=== PATIENT | female | born 2000 | race Caucasian/White ===

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

== ENCOUNTER 2022-07-16 07:30 | Outpatient (RCR) | payer OTHER, SELFPAY ==
--- NOTE | 2022-06-26 11:25 | HP.OTEVAL ---
Patient's Visit Information DASH ACUÑA is a 22 year old F, referred to Occupational Therapy by ANANYA COOLEY, with a diagnosis of bilateral wrist pain Ligamantous laxitvity. Date of Evaluation: 06/25/22 Occupational Therapist: Cristina Jay, OTR/L, CHT - Subjective This 22 year old female was seen for OT eval with dx of bilateral wrist pain - ligamentous laxity- pt states in 2019 she would have pain with playing lacrosse and does not know what initial trigger was-. pt states this winter she could not do much with her wrist/hands duet to pain - left wrist initiated in 2018 was worse than right until January of this year when her right became just as pain. 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 pt would like to return to a PLOF and use her hands/wrist without pain. - ADLs Miscellaneous: Use cell phone, Write, Turn pages in book, Use computer keyboard - Pain bilateral wrist/hands 4 Pain Intensity Range: 3, 5 - ROM Forearm: right/left WNL Wrist: right 70/75 left 75/75 ROM Comments: right RD [address] 15 UD 25 - Strength Wrist: right 4/5 left 4-/5 peak force wrist ext 8# left 6# right flex 5# left 2# Emanations Analysis Technician: right 45# left 40# Lateral Pinch: right 8# left 10# Tripod Pinch: right 2# left 6# - Sensation Sensation Comments: reports tingling in bilateral hands. left will get tingling throughout ulnar nerve distribution. right median nerve denies tingling now - Special Tests WHAT Test: bilateral negative Chandler Scaphoid Shift: bilateral negative - Quick DASH-Disab of Arm,Shoulder& Hand Quick DASH Score: 51.6650 - Goals Goal:: pt will demo a increase in bilateral extended day teacher strength by 10# with report of no pain with resistive testing by d.c Goal:: pt will report pain no greater than 2/10 with daily tasks by d.c Goal:: pt will demo understanding of using tape to limit her ROM to decrease stress on lig. structures by end of 2nd visit. Pt will demo understanding of work/lifting and carry ergonomics to decrease stress on tendons to increase pts independent with ADLs, IADLS and work tasks by d/c. - Rehabilitation General Assessment: pt demo with painful palpation on bilateral wrist at lunate- left Some pain with TFCC testing - Due to onset unknown and length of pts pain pt pt would benefit from skilled OT services 1-2x week for 4 weeks to decrease pain and return pt to PLOF. pt agrees with POC. Rehabilitation Potential: Good - Anticipated Interventions A/AAROM/PROM, Strengthening, Modalities, Orthoses, Joint Protection/Energy Conservation, Ergonomic Education, Education re assistive Equipment, Education re Diagnosis, Home Program, Other Other Interventions: wrist stabilization ex/and tape - Visit Plan Frequency: 2x /Week Duration: 4 Weeks TEXT: Thank you for the opportunity to evaluate your patient. For Medicare and Medicare HMO plans, please review the plan of care and approve it. It will need to be FAXED BACK to us at [phone] for Medicare purposes. Please let me know if there are questions or concerns regarding this plan of care. Physician Signature: Date:
--- NOTE | 2022-10-06 14:24 | HP.OTDCSUM_ITS ---
It has been my pleasure to treat DASH ACUÑA under orders from ANANYA COOLEY, for the diagnosis of bilateral wrist pain Ligamantous laxitvity for a total of 6 visit(s). Please see the following information for a summary of their discharge status. Objective/Function: pt tolerating tasks well-. some discomfort in wrist more with left than right. pt continues to have pain with motion therapist is working in limited plane of motion to strengthen and having pt perform wrist stabilization ex. pt to use supportive brace/tape with playing lacrosse. pt has not scheduled further apts since 07/16/22 and is d/c due to time lapse in services. Patient Goals: Decrease Pain, Use Hand/Wrist/Arm Normally Again Goal:: pt will demo a increase in bilateral director of personnel strength by 10# with report of no pain with resistive testing by d.c Goal:: pt will report pain no greater than 2/10 with daily tasks by d.c Goal:: pt will demo understanding of using tape to limit her ROM to decrease stress on lig. structures by end of 2nd visit. Pt will demo understanding of work/lifting and carry ergonomics to decrease stress on tendons to increase pts independent with ADLs, IADLS and work tasks by d/c. Plan: cont with wrist stabilization ex. If there are questions or concerns regarding this patient's occupational therapy, please fell free to call me at [phone]. Thank you for the referral of this patient. Sincerely, Cristina Jay, OTR/L, CHT
--- NOTE | 2022-10-06 14:24 | OTREVAL_ITS ---
ANANYA COOLEY, It has been my pleasure to treat DASH ACUÑA over the last 6 visits for bilateral wrist pain Ligamantous laxitvity. Please see the progress note below for an update on the occupational therapy plan of care! Subjective: pt states right LF and RF asleep this am- dissipated after a min. right is more bothersome today than left Objective/Function: pt tolerating tasks well-. some discomfort in wrist more with left than right Plan Frequency: 2x /Week Duration: 4 Weeks Visits in this POC: 8 Plan: cont with wrist stabilization ex. 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 structures by end of 2nd visit. Pt will demo understanding of work/lifting and carry ergonomics to decrease stress on tendons to increase pts independent with ADLs, IADLS and work tasks by d/c. Anticipated Interventions Anticipated Interventions: A/AAROM/PROM, Strengthening, Modalities, Orthoses, Joint Protection/Energy Conservation, Ergonomic Education, Education re assistive Equipment, Education re Diagnosis, Home Program, Other Other Interventions: wrist stabilization ex/and tape Please do not hesitate to contact me at [phone] by phone or if you have questions or concerns regarding this new plan of care! Sincerely, Cristina Jay, OTR/L, CHT
== END 2022-07-16 19:00 | disposition home or self-care (01) ==
LOC: OT 07:30
DX: M24.231 Disorder of ligament, right wrist; M24.232 Disorder of ligament, left wrist
CPT/HCPCS: 97110; 97167; 97530

== ENCOUNTER → 2022-07-20 | Outpatient (CLI) | payer OTHER, SELFPAY ==
[2022-07-20 16:23] LABS: Anion Gap 7 (5-15); BUN 10 mg/dL (7-18); BUN/Creat Ratio 12.2 RATIO (10-20); Calcium,Total 9.3 mg/dL (8.5-10.1); Chloride 105 mmol/L (98-107); Creatinine, Serum 0.82 mg/dL (0.55-1.02); EST Glomerular Filtration Rate 94 mL/min (>60); Est Glom Filt Rate - Afr Amer 114 mL/min (>60); Glucose 73 mg/dL (74-106); Potassium 3.8 mmol/L (3.5-5.1); Sodium Level 139 mmol/L (136-145); Thyroid Stim Hormone (TSH) 2.46 uIU/mL (0.358-3.74)
== END | disposition home or self-care (01) ==
LOC: LAB 14:20
PROVIDERS: Referring Provider Internal Medicine Cardiovascular Disease; Visit Provider Internal Medicine Cardiovascular Disease
DX: R00.2 Palpitations (principal)
CPT/HCPCS: 36415; 80048; 83735; 84443

== ENCOUNTER → 2022-07-28 | Outpatient (CLI) | payer OTHER, SELFPAY ==
--- NOTE | 2022-07-28 07:59 | ECHOD_ITS ---
Reason For Study: ARRYTHMIA Procedure This was a 2D Doppler, Color Flow transthoracic echocardiogram. Exam performed in department. Left Ventricle The left ventricle is normal in size, thickness, and systolic function. The left ventricular ejection fraction is 65 %. Right Ventricle Normal right ventricle. Atria The left and right atria are normal. Mitral Valve The mitral valve is structurally normal. No prolapse or stenosis seen. Tricuspid Valve Normal tricuspid valve. Aortic Valve Normal aortic valve. Pulmonic Valve The pulmonic valve is not well visualized. Great Vessels Normal sized aortic root. Pericardium/Pleural No pericardial effusion. MMode/2D Measurements & Calculations LVIDd: 4.8 cm IVSd: 0.66 cm LAV(MOD-bp): 62.1 ml LVIDs: 3.4 cm LVPWd: 0.73 cm LAV(MOD-bp) Indexed: 36.0 ml/m2 RVDd: 3.7 cm FS: 28.5 % LAV(MOD-sp2): 62.8 ml LAV(MOD-sp4): 61.2 ml SV(MOD-sp4): 58.7 ml SV(sp4-el): 58.1 ml LVAd ap4: 30.6 cm2 LVLd ap4: 7.9 cm EDV(MOD-sp4): 99.3 ml EDV(sp4-el): 100.3 ml LVAs ap4: 17.4 cm2 LVLs ap4: 6.1 cm ESV(MOD-sp4): 40.5 ml ESV(sp4-el): 42.1 ml EF(MOD-sp4): 59.2 % EF(sp4-el): 58.0 % LA A4 area: 20.2 cm2 LA dimension(2D): 3.5 cm RA A4 area: 12.0 cm2 Time Measurements MV dec time: 0.14 sec Doppler Measurements & Calculations MV E max marco: 89.8 cm/sec Lat Peak E' Marco: 19.7 cm/sec Med Peak E' Marco: 14.1 cm/sec MV A max marco: 61.9 cm/sec E/E' lat: 4.6 E/E' med: 6.4 MV E/A: 1.5 MV V2 max: 98.2 cm/sec MV dec slope: 676.6 cm/sec2 Ao V2 max: 134.5 cm/sec MV max P.9 mmHg Ao max P.2 mmHg MV V2 mean: 68.7 cm/sec Ao V2 mean: 93.1 cm/sec MV mean P.1 mmHg Ao mean P.0 mmHg MV V2 VTI: 20.7 cm Ao V2 VTI: 26.0 cm LV V1 max: 123.3 cm/sec PA V2 max: 118.0 cm/sec LV V1 max P.1 mmHg PA V2 mean: 84.3 cm/sec LV V1 mean P.7 mmHg LV V1 mean: 91.0 cm/sec LV V1 VTI: 23.1 cm ECHO/Echo Complete Interpretation Summary The left ventricular ejection fraction is 65 %. Ordering Physician: Ave Miguel Referring Physician: Ave Miguel Performed By: Jillian Styles RCS
== END | disposition home or self-care (01) ==
LOC: CVS 07:58
PROVIDERS: Referring Provider Internal Medicine Cardiovascular Disease; Visit Provider Internal Medicine Cardiovascular Disease
DX: R00.2 Palpitations (principal)
CPT/HCPCS: 93225; 93226; 93306

== ENCOUNTER 2022-09-11 09:27 | Outpatient (CLI) | payer OTHER, SELFPAY ==
[2022-09-11 09:43] LABS: Hematocrit 39.9 % (37-47); Hemoglobin 12.8 g/dL (12.0-15.0); Mean Corp Hgb Conc 32.1 g/dL (32-36); Mean Corpuscular Hgb 26.7 pg (27.0-32.0); Mean Corpuscular Volume 83.3 fL (81-99); Mean Platelet Vol. 8.6 fl (6.2-12.0); POSITIVE MORPHOLOGY YES; Platelet Count 329 K/mm3 (150-450); RBC Distribution Width CV 21.5 % (11.6-14.6); RBC Distribution Width SD 63.1 fl (35.1-43.9); Red Blood Count 4.79 M/mm3 (4.2-5.4); White Blood Count 5.2 K/mm3 (4.4-11.0)
[2022-09-11 09:55] LABS: Internal QC Validated? YES +Cl - CLEAR BKGD; Pregnancy, Serum, hCG Quali. NEGATIVE Negative
[2022-09-11 09:56] LABS: Anion Gap 7 (5-15); BUN 8 mg/dL (7-18); BUN/Creat Ratio 9.8 RATIO (10-20); Calcium,Total 9.5 mg/dL (8.5-10.1); Chloride 106 mmol/L (98-107); Creatinine, Serum 0.82 mg/dL (0.55-1.02); EST Glomerular Filtration Rate 94 mL/min (>60); Est Glom Filt Rate - Afr Amer 114 mL/min (>60); Glucose 91 mg/dL (74-106); Potassium 3.8 mmol/L (3.5-5.1); Sodium Level 140 mmol/L (136-145)
--- NOTE | 2022-09-11 15:08 | PCM.TILTTABL ---
Staff Staff: Betty Casey and Jailene Molina Summary Protocol: 70 Degree Upright Tilt Pre Test Resting HR: 88 Pre Test Resting BP: 137/70 Minimum Test HR: 93 Maximum Test HR: 121 Minimum Test BP: 126/0 Maximum Test BP: 134/0 Reason for Test Termination: Reached Maximum Test Time Physician Tilt Table Report Patient's Physicians Primary Care Physician: Elle Villalta Fashion Coordinator: Ave Miguel Indications/Diagnosis: Dizziness/lightheadedness Procedure Comments: The patient was brought to the tilt table laboratory and laid supine on the tilt table. The patient was awake and alert and warm and dry. The resting heart rate was 88 bpm with a resting blood pressure 137/70 mmHg. The cardiac rhythm was normal sinus rhythm. The patient was placed in the 70 degree upright tilt table position for approximately 30 minutes. The patient remained alert and oriented and warm and dry. The minimal heart rate was 93 bpm at initiation of the upright tilt with a minimal blood pressure of 126/70 at the termination of the upright tilt with a maximal heart rate of 121 bpm during the upright tilt and a maximal blood pressure 134/80 mmHg during the upright tilt. The cardiac rhythm remained sinus rhythm. The patient was reported as appearing flushed at times. The patient reported having hot flash , vision fuzzy , headache, arms cooler , back of neck clammy , headache and head pressure, heart faster , shortness of breath, but no loss of consciousness. The patient was returned to the supine position. She remained alert and oriented and warm and dry. Her concluding heart rate was 81 bpm with a concluding blood pressure 128/71 mmHg. Her cardiac rhythm remained sinus rhythm. She was taking oral intake well. She was subsequently released from the tilt table laboratory. Summary: 70 degree upright tilt table study noted for vasovagal type symptoms but considered negative for reproducible vasovagal/neurocardiogenic mediated syncope. Also, based upon the lack of an abrupt increase in heart rate as well as a lack of demonstrable orthostatic hypotension within the first 3 minutes of the head up tilt study there does not appear to be criteria compatible with POTS. This note was generated using a voice recognition system and there may be incorrect words, spelling or punctuation that were not noted when reviewing the office note prior to saving.
[2022-09-11 15:14] VITALS: BP 126/0; BP 134/0; BP 137/70
== END 2022-09-11 23:59 | disposition home or self-care (01) ==
LOC: CVS 09:29
PROVIDERS: PCP Physician Assistant; Referring Provider Internal Medicine Cardiovascular Disease; Visit Provider Internal Medicine Cardiovascular Disease
DX: R42 Dizziness and giddiness (principal); I47.9 Paroxysmal tachycardia, unspecified; R55 Syncope and collapse
CPT/HCPCS: 36415; 80048; 84703; 85027; 93660; J7040; A4216

== ENCOUNTER 2022-09-12 13:41 | Emergency (ER) | payer OTHER, SELFPAY ==
[2022-09-12 13:42] VITALS: BP 143/89; PULSE 99; RESP 18; TEMP 36.3; O2SAT 100; BMI 24.7
--- NOTE | 2022-09-12 13:49 | EKG12_ITS ---
Test Reason : PALPS Blood Pressure : / mmHG Vent. Rate : 096 BPM Atrial Rate : 096 BPM P-R Int : 124 ms QRS Dur : 088 ms QT Int : 366 ms P-R-T Axes : 058 085 030 degrees QTc Int : 462 ms Sinus rhythm with sinus arrhythmia with occasional Premature ventricular complexes Otherwise normal ECG Confirmed by CORBIN SMITH, GRZEGORZ ([id number]), assistant production editor GAVI CHUNG ([id number]) on 09/15/2022 8:05:39 AM Referred By: LANCE Confirmed By:GRZEGORZ ALANIZ MD
[2022-09-12 13:56] VITALS: BP 140/92; PULSE 99; RESP 12; O2SAT 100
[2022-09-12 14:03] VITALS: BP 127/79; BP 135/82; BP 141/80; PULSE 104; PULSE 115; PULSE 120
--- NOTE | 2022-09-12 14:07 | ED.VIS.CHEST ---
HPI <PONCHO Grijalva - Last Filed: 09/12/22 21:54> History of Present Illness Chief Complaint: Palpitations Narrative Narrative: Patient presents with heart palpitations and dizziness. She states her heart rate went into the 100s earlier this afternoon shortly after getting out of bed, prompting her to come to the ED. She has a history of heart palpitations and tachycardia, however, she states the episodes usually only last 1 to 2 minutes but today lasted much longer. She reports having some left sided chest tightness during these episodes. She states the dizziness does not always coincide with the tachycardia and is randomly brought on. A Holter monitor was placed 07/28/22 demonstrated essentially normal sinus rhythm with rare PVCs and rare PACs. An echo was recently performed which demonstrated normal left ventricular systolic function. A table tilt test was performed 09/11/22 and was normal. She denies shortness of breath and current chest pain. She states she had a sip of coffee today and denies alcohol and drug use. She reports having history of anxiety but does not believe she is having a panic attack. She is also complaining of some nausea and a mild headache. [facility] <PONCHO Grijalva - Last Filed: 09/12/22 21:54> [facility] Medical History Lightheadedness Paroxysmal tachycardia, unspecified Syncope and collapse Home Medications albuterol sulfate 90 mcg/actuation aerosol inhaler 2 puff inhalation Q6H PRN Wheezing 07/15/22 [History Last Taken Unknown] cetirizine 10 mg tablet (Zyrtec) 10 mg PO DAILY PRN allergies 07/15/22 [History Last Taken Unknown] epinephrine 0.1 mg/mL injection syringe 0.1 mg IM Q30M PRN Allergic Reaction 07/15/22 [History Last Taken Unknown] fluticasone propionate 50 mcg/actuation nasal spray,suspension (Flonase Allergy Relief) 2 spray intranasal DAILY 07/15/22 [History Last Taken Unknown] ferrous sulfate 325 mg (65 mg iron) tablet 325 mg PO DAILY 07/20/22 [History Last Taken Unknown] levonorgestrel 0.15 mg-ethinyl estradiol 0.03 mg tablet (Altavera (28)) 1 tab PO DAILY 07/20/22 [History Last Taken Unknown] mecobalamin (vitamin B12) 5,000 mcg chewable tablet 5,000 mcg PO DAILY 07/20/22 [History Last Taken Unknown] fluticasone propionate 110 mcg/actuation HFA aerosol inhaler (Flovent HFA) 2 puff inhalation DAILY 08/17/22 [History Last Taken Unknown] Allergy/AdvReac Type Severity Reaction Status Date / Time peanut Allergy Unknown Other Verified 09/12/22 13:44 Penicillins Allergy Unknown Other Verified 09/12/22 13:44 Seasonal Allergies: Uncoded Allergy Unknown Other Verified 09/12/22 13:44 Family History Grandfather Heart disease Myocardial infarction Grandmother Celiac disease Uncle Myocardial infarction, Onset Age: 52 CABGx4 Mother Diabetes Hypertension Hyperlipidemia Father Hypertension Grandfather Myocardial infarction multiple before Surgical History H/O bilateral breast reduction surgery (~05/2021) Social History Smoking Status: Never smoker alcohol intake: current alcohol intake frequency: holidays/special occasions only substance use type: does not use caffeine: Yes Type: coffee Number of servings: 1 ROS <PONCHO Grijalva - Last Filed: 09/12/22 21:54> ROS ED Constitutional Constitutional ED: Denies chills or fever(s) Eyes Eyes: Denies blurry vision or change in vision ENT ENT ED: Denies rhinorrhea or sore throat Cardiovascular Cardiovascular: Reports dizziness, palpitations and racing heartbeat; Denies chest pain or syncope Respiratory/Chest Respiratory/Chest: Denies cough, dyspnea, shortness of breath at rest or shortness of breath with exertion Gastrointestinal Gastrointestinal: Reports nausea; Denies abdominal pain, diarrhea or vomiting Genitourinary Genitourinary ED: Denies dysuria Musculoskeletal Musculoskeletal: Denies myalgias or neck pain Integumentary Denies abscess, Abrasions or rash Neurologic Neurologic: Reports headache(s); Denies paresthesias or weakness Psychiatric Psychiatric: Reports anxiety; Denies depression or suicidal ideation EXAM <PONCHO Grijalva - Last Filed: 09/12/22 21:54> Physical Exam Const Vital Signs: 09/12/22 13:42 09/12/22 13:56 09/12/22 13:56 Temperature 97.4 F L Temperature Source Temporal Pulse Rate 99 99 Pulse Rate [Lying] Pulse Rate [Sitting (for 1 minute prior to obtaining)] Pulse Rate [Standing (for 1 minute prior to obtaining)] Respiratory Rate 18 12 Respiratory Effort Normal Non-Labored Respiratory Pattern Normal Blood Pressure 143/89 H 140/92 H Blood Pressure [Lying] Blood Pressure [Sitting (for 1 minute prior to obtaining)] Blood Pressure [Standing (for 1 minute prior to obtaining)] Blood Pressure Mean 107 108 Blood Pressure Mean [Lying] Blood Pressure Mean [Sitting (for 1 minute prior to obtaining)] Blood Pressure Mean [Standing (for 1 minute prior to obtaining)] Pulse Ox 100 100 Oxygen Delivery Method Room Air Room Air 09/12/22 14:03 09/12/22 15:00 Temperature Temperature Source Pulse Rate 101 H Pulse Rate [Lying] 104 H Pulse Rate [Sitting (for 1 minute prior to obtaining)] 115 H Pulse Rate [Standing (for 1 minute prior to obtaining)] 120 H Respiratory Rate 16 Respiratory Effort Respiratory Pattern Blood Pressure 127/78 H Blood Pressure [Lying] 127/79 H Blood Pressure [Sitting (for 1 minute prior to obtaining)] 135/82 H Blood Pressure [Standing (for 1 minute prior to obtaining)] 141/80 H Blood Pressure Mean 94 Blood Pressure Mean [Lying] 95 Blood Pressure Mean [Sitting (for 1 minute prior to obtaining)] 99 Blood Pressure Mean [Standing (for 1 minute prior to obtaining)] 100 Pulse Ox 97 Oxygen Delivery Method Room Air Negative for orthostatic hypotension. Positive well nourished and well developed General Appearance ED: well developed HEENT Reports moist mucous membranes normocephalic and atraumatic Eyes PERRL and EOMs intact bilaterally Neck supple Chest Wall palpation of chest normal Resp normal respiratory effort and clear to auscultation bilaterally Effort and Inspection: Negative for respiratory distress or pain with movement Cardio regular rate, regular rhythm and no murmurs GI soft to palpation, non-tender, non-distended and no masses Extremity normal to inspection Neuro oriented x3, no sensory deficits noted and gait normal Sensorium / Orientation: awake and alert Motor Exam: strength 5/5 throughout Psych mental status grossly normal Skin no rashes or lesions noted and no wounds <Dr. Alexys Sharp, DO - Last Filed: 09/12/22 22:10> Physical Exam Const Vital Signs: 09/12/22 13:42 09/12/22 13:56 09/12/22 13:56 Temperature 97.4 F L Temperature Source Temporal Pulse Rate 99 99 Pulse Rate [Lying] Pulse Rate [Sitting (for 1 minute prior to obtaining)] Pulse Rate [Standing (for 1 minute prior to obtaining)] Respiratory Rate 18 12 Respiratory Effort Normal Non-Labored Respiratory Pattern Normal Blood Pressure 143/89 H 140/92 H Blood Pressure [Lying] Blood Pressure [Sitting (for 1 minute prior to obtaining)] Blood Pressure [Standing (for 1 minute prior to obtaining)] Blood Pressure Mean 107 108 Blood Pressure Mean [Lying] Blood Pressure Mean [Sitting (for 1 minute prior to obtaining)] Blood Pressure Mean [Standing (for 1 minute prior to obtaining)] Pulse Ox 100 100 Oxygen Delivery Method Room Air Room Air 09/12/22 14:03 09/12/22 15:00 Temperature Temperature Source Pulse Rate 101 H Pulse Rate [Lying] 104 H Pulse Rate [Sitting (for 1 minute prior to obtaining)] 115 H Pulse Rate [Standing (for 1 minute prior to obtaining)] 120 H Respiratory Rate 16 Respiratory Effort Respiratory Pattern Blood Pressure 127/78 H Blood Pressure [Lying] 127/79 H Blood Pressure [Sitting (for 1 minute prior to obtaining)] 135/82 H Blood Pressure [Standing (for 1 minute prior to obtaining)] 141/80 H Blood Pressure Mean 94 Blood Pressure Mean [Lying] 95 Blood Pressure Mean [Sitting (for 1 minute prior to obtaining)] 99 Blood Pressure Mean [Standing (for 1 minute prior to obtaining)] 100 Pulse Ox 97 Oxygen Delivery Method Room Air [facility] <PONCHO Grijalva - Last Filed: 09/12/22 21:54> [facility] Narrative Medical decision making narrative: Patient was given Zofran for nausea. Orthostatics were performed and were normal. EKG performed and showed normal sinus rhythm with occasional PVCs. Patient's heart rate remained stable here in the ED, the highest it went was 101 bpm while laying in 120 bpm while standing. Patient has a follow-up appointment with cardiology scheduled for next week. It is possible that this can be attributed to anxiety since she has a history of it. She is not lightheaded or dizzy here in the ED. I am comfortable with her discharging home with close cardiology follow-up. Patient is comfortable with plan. Lab Data Attestation: I reviewed the patient's lab results. Lab results narrative: CBC also performed 09/11/2022 with minimal change to today. Low lymphocytes. Normal CMP. Negative . Labs: Laboratory Results - last 24 hr 09/12/22 09/12/22 09/12/22 13:52 13:52 13:52 WBC 9.4 RBC 4.70 Hgb 12.2 Hct 38.9 MCV 82.8 MCH 26.0 L MCHC 31.4 L RDW Std Deviation 63.1 H RDW Coeff of Joellen 21.7 H Plt Count 345 MPV 9.1 Immature Gran % (Auto) 0.400 Neut % (Auto) 84.0 H Lymph % (Auto) 9.8 L [place] % (Auto) 5.4 Eos % (Auto) 0.0 Baso % (Auto) 0.4 Absolute Neuts (auto) 7.9 H Absolute Lymphs (auto) 0.92 Nucleated RBC % 0 Anisocytosis RARE Sodium 139 Potassium 3.7 Chloride 106 Carbon Dioxide 27.0 Anion Gap 6 BUN 7 Creatinine 0.69 Estim Creat Clear Calc 117.03 Est GFR (MDRD) Af Amer 138 Est GFR (MDRD) Non-Af 114 BUN/Creatinine Ratio 10.1 Glucose 91 Calcium 9.3 Total Bilirubin 0.20 AST 17 ALT 23 Alkaline Phosphatase 43 L Total Protein 7.9 Albumin 3.9 Globulin 4.0 Albumin/Globulin Ratio 1.0 Serum , Qual NEGATIVE EKG Initial EKG: Attestation: I personally reviewed and interpreted this EKG as follows: Comments: Rate 96 bpm. Sinus rhythm with occasional PVCs. No ST elevation. No signs of cardiac ischemia. This EKG has also been reviewed by attending ED physician. <Dr. Alexys Sharp, DO - Last Filed: 09/12/22 22:10> [facility] Narrative Medical decision making narrative: Patient was given Zofran for nausea. Orthostatics were performed and were normal. EKG performed and showed normal sinus rhythm with occasional PVCs. Patient's heart rate remained stable here in the ED, the highest it went was 101 bpm while laying in 120 bpm while standing. Patient has a follow-up appointment with cardiology scheduled for next week. It is possible that this can be attributed to anxiety since she has a history of it. She is not lightheaded or dizzy here in the ED. I am comfortable with her discharging home with close cardiology follow-up. Patient is comfortable with plan. This patient was seen with a PA/STATISTICIAN THEORETICAL Individually assessed they patient including history and physical. I have reviewed everything on the chart that is available and agree with the documentation provided by the PA/STATISTICIAN THEORETICAL including discussion about the assessment, treatment plan, discussion, and return precautions. Patient seen and evaluated for palpitations and lightheadedness. She has had this in the past. She has had an echocardiogram which was normal. She had outpatient Holter monitor which is also normal. She also had a tilt table test which did not show any evidence of abnormality and she did not appear to have pots disease. She has a follow-up with cardiology this next week. Here her lab work is normal. EKG on my interpretation shows a sinus rhythm with a rate of 96 bpm without sign of ischemic change. There are PVCs noted. Orthostatic vital signs are normal. Ultimately patient has a normal work-up I feel she stable for discharge. Impression: 1. lightheadedness 2. Palpitations Lab Data Labs: Laboratory Results - last 24 hr 09/12/22 09/12/22 09/12/22 13:52 13:52 13:52 WBC 9.4 RBC 4.70 Hgb 12.2 Hct 38.9 MCV 82.8 MCH 26.0 L MCHC 31.4 L RDW Std Deviation 63.1 H RDW Coeff of Joellen 21.7 H Plt Count 345 MPV 9.1 Immature Gran % (Auto) 0.400 Neut % (Auto) 84.0 H Lymph % (Auto) 9.8 L [place] % (Auto) 5.4 Eos % (Auto) 0.0 Baso % (Auto) 0.4 Absolute Neuts (auto) 7.9 H Absolute Lymphs (auto) 0.92 Nucleated RBC % 0 Anisocytosis RARE Sodium 139 Potassium 3.7 Chloride 106 Carbon Dioxide 27.0 Anion Gap 6 BUN 7 Creatinine 0.69 Estim Creat Clear Calc 117.03 Est GFR (MDRD) Af Amer 138 Est GFR (MDRD) Non-Af 114 BUN/Creatinine Ratio 10.1 Glucose 91 Calcium 9.3 Total Bilirubin 0.20 AST 17 ALT 23 Alkaline Phosphatase 43 L Total Protein 7.9 Albumin 3.9 Globulin 4.0 Albumin/Globulin Ratio 1.0 Serum , Qual NEGATIVE Discharge Plan Triage Chief Complaint: Palpitations ED Midlevel Provider: Leonor Knox ED Provider: Alexys Sharp Dx/Rx/DC Orders Clinical Impression: Lightheadedness, Palpitations Instructions: ED Dizziness, Uncertain Cause, ED Palpitations Prescriptions: No Action levonorgestrel-ethinyl estrad [Altavera (28)] 0.15-0.03 mg tablet 1 tab PO DAILY Label Comments: TAKE 1 TABLET BY MOUTH ONCE DAILY AT APPROXIMATELY THE SAME TIME EACH DAY. mecobalamin (vitamin B12) 5,000 mcg tablet,chewable 5,000 mcg PO DAILY ferrous sulfate 325 mg (65 mg iron) tablet 325 mg PO DAILY cetirizine [Zyrtec] 10 mg tablet 10 mg PO DAILY PRN (Reason: allergies) fluticasone propionate [Flonase Allergy Relief] 50 mcg/actuation spray,suspension 2 spray intranasal DAILY Rx Instructions: administer into each nostril albuterol sulfate 90 mcg/actuation HFA aerosol inhaler 2 puff inhalation Q6H PRN (Reason: Wheezing) epinephrine 0.1 mg/mL syringe 0.1 mg IM Q30M PRN (Reason: Allergic Reaction) Rx Instructions: do not exceed 12 doses per 24 hrs fluticasone propionate [Flovent HFA] 110 mcg/actuation HFA aerosol inhaler 2 puff inhalation DAILY Primary Care Provider: lEle Villalta Referrals: Elle Villalta PA [Primary Care Provider] - Activity Restrictions/Additional Instructions: Please seek medical attention if any new or worsening symptoms. Disposition Disposition: Home, Self Care Discharge Date/Time: 09/12/22 16:08
[2022-09-12 14:18] LABS: Absolute Lymphocyte Count 0.92 X10^3/uL (0.83-4.51); Absolute Neutrophil Count 7.9 X10^3/uL (2.0-7.7); Basophil# 0.04 X10^3/uL; Basophil% 0.4 % (0-1); Hematocrit 38.9 % (37-47); Hemoglobin 12.2 g/dL (12.0-15.0); Lymphocyte # 0.92 X10^3/ul (0.83-4.51); Lymphocyte % 9.8 % (19-41); Mean Corp Hgb Conc 31.4 g/dL (32-36); Mean Corpuscular Volume 82.8 fL (81-99); Mean Platelet Vol. 9.1 fl (6.2-12.0); Monocyte# 0.51 X10^3/uL; Monocyte% 5.4 % (0-10); NRBC Flagged by Analyzer 0 % (0-5); Neutrophil # 7.88 X10^3/uL (2.7-7.7); POSITIVE MORPHOLOGY YES; Platelet Count 345 K/mm3 (150-450); RBC Distribution Width CV 21.7 % (11.6-14.6); RBC Distribution Width SD 63.1 fl (35.1-43.9); White Blood Count 9.4 K/mm3 (4.4-11.0)
[2022-09-12 14:19] LABS: Differential Indicated SCAN CRITERIA MET
[2022-09-12 14:27] LABS: Internal QC Validated? YES +Cl - CLEAR BKGD; Pregnancy, Serum, hCG Quali. NEGATIVE Negative
[2022-09-12 14:35] LABS: AST(SGOT) 17 U/L (15-37); Alanine Aminotransfer ALT/SGPT 23 U/L (13-56); Albumin, Serum 3.9 g/dL (3.2-5.0); Alkaline Phosphatase 43 U/L (45-117); Anion Gap 6 (5-15); BUN 7 mg/dL (7-18); BUN/Creat Ratio 10.1 RATIO (10-20); Calcium,Total 9.3 mg/dL (8.5-10.1); Chloride 106 mmol/L (98-107); Creatinine, Serum 0.69 mg/dL (0.55-1.02); EST Glomerular Filtration Rate 114 mL/min (>60); Est Glom Filt Rate - Afr Amer 138 mL/min (>60); Estimated Creatinine Clearance 117.03 ml/min; Glucose 91 mg/dL (74-106); Potassium 3.7 mmol/L (3.5-5.1); Protein, Total 7.9 g/dL (6.4-8.2); Sodium Level 139 mmol/L (136-145)
[2022-09-12 14:43] LABS: Anisocytosis RARE
[2022-09-12] MEDS: Ondansetron 4 MG/2 ML Vial IV (14:50)
[2022-09-12 15:00] VITALS: BP 127/78; PULSE 101; RESP 16; O2SAT 97
== END 2022-09-12 16:08 | disposition home or self-care (01) ==
PROVIDERS: Physician Assistant; Emergency Provider Student in an Organized Health Care Education/Training Program; PCP Physician Assistant; Visit Provider Student in an Organized Health Care Education/Training Program
DX: R00.2 Palpitations (principal); R51.9 Headache, unspecified; R00.0 Tachycardia, unspecified; R42 Dizziness and giddiness; I49.3 Ventricular premature depolarization; R11.0 Nausea; Z79.51 Long term (current) use of inhaled steroids
CPT/HCPCS: 80053; 84703; 85025; 93005; 96374; 99284; A4216; J2405

== ENCOUNTER → 2023-01-19 | Outpatient (CLI) | payer OTHER, SELFPAY | END | disposition home or self-care (01) | LOC: LABSPEC 15:37 | PROVIDERS: PCP Physician Assistant; Visit Provider Otolaryngology | DX: J03.90 Acute tonsillitis, unspecified (principal) | CPT/HCPCS: 87070 ==